=== PATIENT | female | born 1935 | race African-American/Black ===

== ENCOUNTER 2021-10-03 17:44 | Emergency (ER) | payer MEDICARE, OTHER ==
[~2021-10-03] VITALS: Ht 162.6 cm; Wt 57.9 kg
[~2021-10-03 17:44] MED LIST: AMLO5TAB66 PO; ASPI-1444 PO; DOCU250C91 PO; LEVO75TA4 PO; LISI40TA9 PO; LOVA40TA2 PO; METO50TA18 PO; POTA-92 PO
[2021-10-03] MEDS ORDERED: SODIUM CHLORIDE 0.9% 1,000 ML IV ONE (19:45)
[2021-10-03] MEDS ORDERED: LEVO100 PO (19:52)
[2021-10-03] MEDS ORDERED: DOCU-350 PO (19:52)
[2021-10-03 20:08] LABS: BASOPHILS % (AUTO) 0.4 % (0.0-2.0); EOSINOPHILS % (AUTO) 0.1 % (1.0-6.0); HEMATOCRIT 40.7 % (36-46); HEMOGLOBIN 13.4 g/dL (12.0-16.0); LYMPHOCYTES # (AUTO) 0.7 K/uL (1.0-4.8); LYMPHOCYTES % (AUTO) 4.7 % (22.0-44.0); MEAN CORPUSCULAR HEMOGLOBIN 28.7 pg (26.0-34.0); MEAN CORPUSCULAR VOLUME 87 fL (80-100); MONOCYTES # (AUTO) 0.6 K/uL (0.1-1.0); MONOCYTES % (AUTO) 3.8 % (2.0-9.0); NEUTROPHILS # (AUTO) 13.9 K/uL (1.8-7.7); PLATELET COUNT (AUTO) 214 K/uL (150-450); RED BLOOD CELL COUNT(AUTO) 4.69 MIL/uL (4.00-5.20); RED CELL DISTRIBUTION WIDTH 14.1 % (11.5-14.5)
[2021-10-03 20:19] LABS: ANION GAP 21 mmol/L (8-16); CARBON DIOXIDE 23 mmol/L (22-29); CHLORIDE 96 mmol/L (98-107); CREATININE 0.96 mg/dL (0.60-1.30); GLUCOSE,RANDOM 66 mg/dL (70-110); POTASSIUM 3.6 mmol/L (3.5-5.1); SODIUM SERUM 140 mmol/L (136-145); UREA NITROGEN, BLOOD 29 mg/dL (7-18)
[2021-10-03 20:20] LABS: GLOMERULAR FILTR. RATE CALC > 60 mL/min (>60)
[2021-10-03 21:23] VITALS: BP 208/82
== END 2021-10-03 22:22 | disposition home or self-care (01) ==
LOC: EMS 17:44
DX: R55 Syncope and collapse (principal); D72.829 Elevated white blood cell count, unspecified; E86.0 Dehydration; E11.9 Type 2 diabetes mellitus without complications; E78.00 Pure hypercholesterolemia, unspecified; I10 Essential (primary) hypertension; E03.9 Hypothyroidism, unspecified; K59.00 Constipation, unspecified; Z95.0 Presence of cardiac pacemaker
CPT/HCPCS: 36415; 80048; 85025; 93005; 96360; 99284; J7030